=== PATIENT | male | born 1965 | race Caucasian/White ===

== ENCOUNTER 2023-10-04 08:12 | Day surgery (SDC) | payer BC ==
[~2023-10-04] VITALS: Ht 172.7 cm; Wt 102.1 kg
[~2023-10-04 08:12] MED LIST: ASPI1CHW2 PO; ATEN25TA PO; CO Q PO; FISH500C PO; GLIM4TAB5 PO; LISINOPRIL-HCTZ PO; LOSA100T8 PO; METF10004 PO; METF500T13 PO; MIDAZOLAM INJ 2MG/2ML VIAL As Ordered ONE; MULT1TAB10 PO; OMEP-173 PO; OMEP40CA4 PO; PHENYLEPHRINE 10% OPHTH SOL 5ML OD PRN; PRAV20TA2 PO; PRAV40TA2 PO; TIRZ2.5P SC; VITA200016 PO; fentaNYL 100 MCG/2 ML INJECTION As Ordered ONE
[2023-10-04] MEDS: LIDOCAINE 3.5 % 1ML OPHTH TOPICAL GEL OU ONE (08:56)
[2023-10-04] MEDS: OFLOXACIN 0.3 % (OCUFLOX) OPTH SOL 5ML OD ONE (08:57)
[2023-10-04] MEDS: PHENYLEPHRINE 2.5% OPHTH SOL 2ML OD SCH (08:57)
[2023-10-04] MEDS: TROPICAMIDE 1% OPHTH SOLN 15ML OD SCH (08:57)
[2023-10-04] MEDS: ATROPINE SULFATE 1% OPHTH SOLN 2ML BTL OD SCH (08:57)
[2023-10-04] MEDS: LIDOCAINE 1% SDV 5ML VIAL As Ordered ONE (09:58)
[2023-10-04] MEDS: BSS IRRIG/VANCO(10MG)/TOBRA(5MG)/EPINEPH(1:1000-0.5CC)500ML BAG-ORONLY As Ordered ONE (09:59)
[2023-10-04] MEDS: CEFUROXIME 1MG/0.1ML INTRACAMERAL INJ As Ordered ONE (09:59)
[2023-10-04 10:11] VITALS: BP 166/93; TEMP 97.6; O2SAT 98
== END 2023-10-04 10:29 | disposition home or self-care (01) ==
LOC: M SDC 08:12
PROVIDERS: ATTEND Ophthalmology
DX: H25.11 Age-related nuclear cataract, right eye (principal); E11.9 Type 2 diabetes mellitus without complications; Z87.891 Personal history of nicotine dependence; Z79.899 Other long term (current) drug therapy
CPT/HCPCS: 66984; J0697; J2250; J3010; V2632